=== PATIENT | male | born 2000 | race Asian ===

== ENCOUNTER 2024-01-24 16:25 | Emergency (ER) | payer OTHER ==
[~2024-01-24] VITALS: Ht 177.8 cm; Wt 136.1 kg
[2024-01-24 16:29] VITALS: BP 134/69; TEMP 98.6; O2SAT 100
[2024-01-24] MEDS ORDERED: POLY10DR3 RIGHTEYE (16:42)
== END 2024-01-24 17:26 | disposition home or self-care (01) ==
LOC: ER 16:25
DX: H10.9 Unspecified conjunctivitis (principal)